=== PATIENT | female | born 1995 | race Caucasian/White ===

== ENCOUNTER 2024-02-20 11:48 | Emergency (ER) | payer OTHER ==
[~2024-02-20] VITALS: Ht 157.5 cm; Wt 56.7 kg
== END 2024-02-20 13:28 | disposition home or self-care (01) ==
LOC: ER 11:48
DX: S09.92XA Unspecified injury of nose, initial encounter (principal); S06.0X0A Concussion without loss of consciousness, initial encounter; W54.1XXA Struck by dog, initial encounter
CPT/HCPCS: 99282